=== PATIENT | male | born 1955 | race Hispanic/Latino ===

== ENCOUNTER 2017-03-29 09:38 | Day surgery (SDC) | payer BC ==
[~2017-03-29 09:38] MED LIST: ANCEF/STERILE WATER 2 GM/20 ML IV NR; DILAUDID IV PRN; MARCAINE 0.25% INFILTRATI ONE
[2017-03-29] MEDS ORDERED: PEPCID PO NR (10:00)
[2017-03-29] MEDS ORDERED: VERSED IV NR (10:00)
--- NOTE | 2017-03-29 11:39 | Anesthesia Day of Surgery ---
Anesthesia Day of Surgery - Day of Surgery Patient Examined: Yes Patient H&P Reviewed: Yes Patient is NPO: Yes
--- NOTE | 2017-03-29 11:41 | Anesthesia Consultation ---
Anesthesia Consult and Med Hx Date of service: 03/29/17 - Airway Anesthetic Teeth Evaluation: Edentulous ROM Head & Neck: Adequate Mental/Hyoid Distance: Adequate Mallampati Class: Class II Intubation Access Assessment: Probably Good - Pulmonary Exam CTA: Yes - Cardiac Exam Cardiac Exam: RRR - Pre-Operative Health Status ASA Pre-Surgery Classification: ASA1 Proposed Anesthetic Plan: General - Pulmonary Hx Smoking: No Hx Sleep Apnea: No - Cardiovascular System Hx Hypertension: No Hx Heart Attack/AMI: No - Central Nervous System CVA: No Hx Psychiatric Problems: No - Gastrointestinal Hx Ulcer: No - Endocrine Hx Renal Disease: No Hx Liver Disease: No Hx Non-Insulin Dependent Diabetes: No - Other Systems Hx Cancer: No - Additional Comments Anesthesia Medical History Comments: Nauseous after discharge, otherwise NAC
[2017-03-29] MEDS ORDERED: NACL 0.9% 1000 ML 1,000 ML IV SCH (12:00)
[2017-03-29] MEDS ORDERED: ZOFRAN IV PRN ×2 (12:00→15:16)
[2017-03-29] MEDS ORDERED: DECADRON ONE (12:11)
[2017-03-29] MEDS ORDERED: ZOFRAN ONE (12:11)
[2017-03-29] MEDS ORDERED: ZEMURON IV ONE (12:11)
[2017-03-29] MEDS ORDERED: DIPRIVAN 10 MG/ML IV ONE (12:11)
[2017-03-29] MEDS ORDERED: NEOSTIGMINE ONE (12:11)
[2017-03-29] MEDS ORDERED: DILAUDID ONE ×2 (12:11→12:41)
[2017-03-29] MEDS ORDERED: NACL 0.9% 1000 ML 1,000 ML ONE (12:40)
[2017-03-29] MEDS ORDERED: MARCAINE 0.25% INFILTRATI ONE (13:04)
[2017-03-29] MEDS ORDERED: NACL 0.9% IR ONE (13:04)
--- NOTE | 2017-03-29 14:33 | Post Operative Note ---
Pre-op diagnosis: Large Left inguino scrotal hernia Post-op diagnosis: same Findings: Large indirect hernia , inguino scrotal Procedure: Laparoscopic mesh repair Lefty inguino scrotal hernia Anesthesia: TIA Surgeon: JODI HATFIELD Sales Engineer: LORI TIDWELL Estimated blood loss: minimal Pathology: none Condition: stable Disposition: PACU
--- NOTE | 2017-03-29 14:36 | Discharge Summary ---
Short Stay Discharge Plan Weight Bearing Status: Full Weight Bearing Diet: regular Wound: open to air Additional Instructions: scrotal support bandage as needed Follow up with: [facility] [Other] - 7 Days Prescriptions: Ondansetron [Zofran TAB] 4 mg PO Q8HR PRN #20 tablet PRN Reason: Nausea oxyCODONE /ACETAMINOPHEN [Percocet 5/325] 1 tab PO Q4HR PRN #30 tab PRN Reason: Pain, Moderate (4-6) traMADol [Ultram 50 MG tab] 50 mg PO Q6HR PRN #20 tablet PRN Reason: Pain, Mild (1-3)
[2017-03-29] MEDS ORDERED: ROBINUL ONE (15:00)
[2017-03-29] MEDS ORDERED: XYLOCAINE MPF 2% ONE (15:00)
[2017-03-29] MEDS ORDERED: PERCOCET 5/325 PO PRN (15:16)
[2017-03-29] MEDS ORDERED: DILAUDID IV PRN (15:16)
[2017-03-29] MEDS ORDERED: PERCOCET 5/325 ONE (15:40)
--- NOTE | 2017-03-29 15:51 | Operative Report ---
PREOPERATIVE DIAGNOSIS: Large left inguinal scrotal hernia, partially reducible. POSTOPERATIVE DIAGNOSIS: Large left inguinal scrotal hernia, indirect type. OPERATIVE PROCEDURE: Laparoscopic mesh repair of left inguinal hernia. ANESTHESIA: General endotracheal. SURGEON: Sohail Hendricks MD SPECIMENS: None. ESTIMATED BLOOD LOSS: Minimal. TIRE MOLD ENGRAVER: Dr. Milton Gray. INDICATIONS: A 61-year-old male patient with a symptomatic large inguinal scrotal hernia that is partially reducible, but without any evidence of bowel obstruction. He is brought in for laparoscopic repair. FINDINGS: Large left inguinal scrotal hernia. The internal ring is stretched for 5 cm x 5 cm. The hernial sac is at least 10 to 12 cm long and 5 to 6 cm wide with significant amount of scarring to the internal spermatic fascia and gonadal vessels. No herniation or incarceration of bowel loops or omentum noted. Visualized part of the bowel loops appeared normal. No hernia evident on the right side. No ascites was noted. DESCRIPTION OF PROCEDURE: After satisfactory induction of general endotracheal anesthesia, abdomen was prepped and draped. Prior to that, a Prince catheter was inserted, which drained clear unit. A supraumbilical transverse incision was made and was inserted in the peritoneal cavity. After adequate carbon dioxide insufflation up to 13 mmHg, a 10 mm trocar was inserted, through this a 10-mm 30-degree angle scope was placed and under direct vision the lateral 5 mm ports were placed at the lateral border of the rectus muscle. Above findings were noted. Peritoneal flaps were developed adjacent to the left-sided 5 mm trocar extended medial to the urachal ligament and this was divided inferiorly. Preperitoneal space was developed medially and laterally first. The Kirk's ligament was identified along its entire length. Laterally more pocket was created. Then began the dissection and separation of this large hernial sac from the gonadal vessels and vas deferens and from the scarred internal spermatic fascia. Considerable amount of blunt and sharp dissection with minimal amount of cautery was needed. This took considerable amount of time, but the hernial sac was completely . Minimal bleeding was controlled by application of 5 mm clips intermedius and dressed with cautery. Separation of the peritoneum was done for several centimeters beyond the confluence of the gonadal vessels and vas deferens. No active bleeding was noted, minimal oozing only was noted. No hematoma was evident. In the space developed as above 3 inches x 5 inches x Parietex mesh was placed. This was straightened out to cover the defect with overlap in all directions. This was anchored to the Kirk's ligament inferiorly and ProTackers. Superiorly and laterally more ProTackers were placed. Reperitonealization was done more ProTackers. The redundant hernia sac was pulled up and attached to the peritoneum laterally. Hemostasis was quite adequate. the clear urine so far. Desufflation was done and all the trocars were removed under direct visualization. Linea alba and the supraumbilical trocar site was approximated with 0 Vicryl. All the skin incisions were closed with 4-0 Monocryl sutures. There was minimal blood loss. He tolerated the procedure well and was transferred to postanesthesia care unit in satisfactory condition. JOB# [id number] MARTÍN/OLGA
[2017-03-29] MEDS ORDERED: NACL 0.9% 100 ML ONE (15:55)
[2017-03-29] MEDS ORDERED: NEO SYNEPHRINE ONE (15:55)
[2017-03-29 16:25] VITALS: BP 136/76
== END 2017-03-29 09:39 | disposition home or self-care (01) ==
LOC: OR 09:38
PROVIDERS: ATTEND Surgery
DX: K40.90 Unilateral inguinal hernia, without obstruction or gangrene, not specified as recurrent (principal); Z98.890 Other specified postprocedural states
CPT/HCPCS: 49650; C1781; J0690; J1100; J1170; J2250; J2370; J2405; J2704; J2710; J7030

== ENCOUNTER 2018-06-01 08:06 | Outpatient (CLI) | payer BC ==
[2018-06-01 08:37] LABS: Basophils % (Auto) 0.8 % (0.0-1.8); Eosinophils # (Auto) 0.2 K/mm3 (0.0-0.4); Eosinophils % (Auto) 4.3 % (0.0-4.3); Hematocrit 46.4 % (35.5-45.6); Hemoglobin 15.7 gm/dl (11.8-15.2); Lymphocytes # (Auto) 1.6 K/mm3 (1.2-5.4); Lymphocytes % (Auto) 29.7 % (13.4-35.0); Mean Corpuscular HGB Conc 34 % (32-34); Mean Corpuscular Hemoglobin 31 pg (28-32); Mean Corpuscular Volume 93 fl (84-94); Monocytes # (Auto) 0.4 K/mm3 (0.0-0.8); Platelet Count 230 K/mm3 (140-440); Red Blood Count 5.01 M/mm3 (3.65-5.03); Red Cell Distribution Width 13.5 % (13.2-15.2)
[2018-06-01 09:04] LABS: Bilirubin,Urine NEG (Negative); Blood,Urine SM (Negative); Color,Urine Straw (Yellow); Protein,Urine <15 mg/dL mg/dL (Negative); Urobilinogen,Urine < 2.0 mg/dL (<2.0)
[2018-06-01 09:07] LABS: Alanine Aminotransferase 18 units/L (7-56); Albumin 4.6 g/dL (3.9-5); BUN/Creatinine Ratio 11; Blood Urea Nitrogen 10 mg/dL (9-20); Calcium 9.2 mg/dL (8.4-10.2); Chol/HDL Ratio 3.25 %; HDL Cholesterol 59 mg/dL (40-59); Hemolysis Index 3; LDL Cholesterol,Direct 132 mg/dL (50-130)
== END 2018-06-01 08:07 | disposition home or self-care (01) ==
LOC: LAB 08:06
PROVIDERS: ATTEND Physician Assistant
DX: Z13.220 Encounter for screening for lipoid disorders (principal); Z13.29 Encounter for screening for other suspected endocrine disorder; Z12.5 Encounter for screening for malignant neoplasm of prostate
CPT/HCPCS: 36415; 80053; 80061; 81001; 84153; 84443; 85025

== ENCOUNTER 2019-11-30 10:21 | Outpatient (CLI) | payer BC ==
[2019-11-30 10:51] LABS: Basophils # (Auto) 0.1 K/mm3 (0.0-0.1); Basophils % (Auto) 1.1 % (0.0-1.8); Eosinophils # (Auto) 0.2 K/mm3 (0.0-0.4); Eosinophils % (Auto) 3.8 % (0.0-4.3); Lymphocytes # (Auto) 1.5 K/mm3 (1.2-5.4); Mean Corpuscular HGB Conc 36 % (32-34); Mean Corpuscular Volume 90 fl (84-94); Monocytes # (Auto) 0.4 K/mm3 (0.0-0.8); Monocytes % (Auto) 7.8 % (0.0-7.3); Platelet Count 241 K/mm3 (140-440); Red Blood Count 4.85 M/mm3 (3.65-5.03); Red Cell Distribution Width 13.3 % (13.2-15.2)
[2019-11-30 11:11] LABS: Alanine Aminotransferase 17 units/L (7-56); Albumin 4.6 g/dL (3.9-5); BUN/Creatinine Ratio 15; Blood Urea Nitrogen 12 mg/dL (9-20); Calcium 9.2 mg/dL (8.4-10.2); Hemolysis Index 7
[2019-11-30 11:16] LABS: Hemoglobin 15.5 gm/dl (11.8-15.2)
[2019-11-30 11:17] LABS: Hematocrit 43.5 % (35.5-45.6)
== END 2019-11-30 10:22 | disposition home or self-care (01) ==
LOC: LAB 10:21
PROVIDERS: ATTEND Physician Assistant
DX: B35.1 Tinea unguium (principal); L85.3 Xerosis cutis; L82.1 Other seborrheic keratosis; Z79.899 Other long term (current) drug therapy
CPT/HCPCS: 36415; 80053; 85025